=== PATIENT | female | born 1965 | race Caucasian/White ===

== ENCOUNTER 2018-09-08 17:32 | Emergency (ER) | payer OTHER ==
[~2018-09-08] VITALS: Ht 165.1 cm; Wt 81.8 kg
[2018-09-08] MEDS ORDERED: ACET-2247 PO (17:43)
[2018-09-08] MEDS ORDERED: PredniSONE 20 MG TABLET PO ONE (19:30)
[2018-09-08] MEDS ORDERED: IPRATROPIUM BROMIDE 0.5 MG/2.5 ML NEB SOLUTION NEB ONE (19:30)
[2018-09-08] MEDS ORDERED: BENZONATATE 100 MG CAPSULE PO ONE (19:30)
[2018-09-08] MEDS ORDERED: ALBUTEROL SULFATE 2.5 MG/0.5 ML NEB SOLUTION NEB ONE (19:30)
[2018-09-08] MEDS ORDERED: 0.9% SODIUM CHLORIDE 5 ML NEB SOLUTION NEB ONE (19:42)
[2018-09-08 20:29] VITALS: BP 138/80
== END 2018-09-08 20:29 | disposition home or self-care (01) ==
LOC: EMS 17:35
DX: J98.01 Acute bronchospasm (principal); J04.0 Acute laryngitis; Z88.0 Allergy status to penicillin; Z88.6 Allergy status to analgesic agent; Z88.8 Allergy status to other drugs, medicaments and biological substances
CPT/HCPCS: 94640; 99283; J7512

== ENCOUNTER 2020-04-20 22:23 | Emergency (ER) | payer MEDICAID, OTHER ==
[~2020-04-20] VITALS: Ht 165.1 cm; Wt 78.2 kg
[~2020-04-20 22:23] MED LIST: ACET-2865 PO; ALBU8HFA IH
[2020-04-20] MEDS ORDERED: ACETAMINOPHEN 325 MG TABLET PO ONE (22:45)
[2020-04-20] MEDS ORDERED: OxyCODONE HCL/ACETAMINOPHEN 5-325 MG TABLET PO ONE (23:30)
[2020-04-21 00:12] VITALS: BP 130/89
== END 2020-04-21 00:18 | disposition home or self-care (01) ==
LOC: EMS 22:25
DX: S52.572A Other intraarticular fracture of lower end of left radius, initial encounter for closed fracture (principal); S52.612A Displaced fracture of left ulna styloid process, initial encounter for closed fracture; J45.909 Unspecified asthma, uncomplicated; Z88.0 Allergy status to penicillin; Z88.6 Allergy status to analgesic agent; Z91.041 Radiographic dye allergy status; Z79.899 Other long term (current) drug therapy; V00.121A Fall from non-in-line roller-skates, initial encounter; Y93.51 Activity, roller skating (inline) and skateboarding; Y92.89 Other specified places as the place of occurrence of the external cause; Y99.8 Other external cause status
CPT/HCPCS: 73090-TC; 73110-TC; Z7502; Z7610